=== PATIENT | male | born 1985 | race Caucasian/White ===

== ENCOUNTER 2018-03-06 14:19 | Emergency (ER) | payer OTHER ==
[~2018-03-06] VITALS: Ht 182.9 cm; Wt 144.7 kg
[2018-03-06 14:32] VITALS: Ht 182.9 cm; Wt 144.7 kg
[2018-03-06 16:39] VITALS: BP 145/80
== END 2018-03-06 16:39 | disposition home or self-care (01) ==
LOC: ED 14:19
DX: S43.401A Unspecified sprain of right shoulder joint, initial encounter (principal); J45.909 Unspecified asthma, uncomplicated; X58.XXXA Exposure to other specified factors, initial encounter; Y93.89 Activity, other specified; Y92.89 Other specified places as the place of occurrence of the external cause; Y99.8 Other external cause status
CPT/HCPCS: J1885

== ENCOUNTER 2019-05-01 10:00 | Emergency (ER) | payer OTHER ==
[~2019-05-01] VITALS: Ht 180.3 cm; Wt 145.6 kg
[2019-05-01 10:11] VITALS: BP 182/106; Ht 180.3 cm; Wt 145.6 kg
== END 2019-05-01 10:45 | disposition home or self-care (01) ==
LOC: ED 10:00
DX: M54.30 Sciatica, unspecified side (principal); J45.909 Unspecified asthma, uncomplicated